=== PATIENT | female | born 1955 ===

== ENCOUNTER 2018-03-17 11:00 | Emergency (ER) | payer OTHER ==
[~2018-03-17] VITALS: Ht 162.6 cm; Wt 64.9 kg
[2018-03-17] MEDS ORDERED: LISINOPRIL40 MG (13:07)
[2018-03-17] MEDS ORDERED: GLUCOPHAGE XR750 MG (13:07)
[2018-03-17] MEDS ORDERED: CRESTOR5 MG (13:07)
[2018-03-17] MEDS ORDERED: KETO10TA2 PO (14:13)
[2018-03-17] MEDS ORDERED: ORPHENADRINE C100 MG PO (14:13)
[2018-03-17] MEDS ORDERED: CYCLOBENZAPRINE10 MG PO (14:13)
== END 2018-03-17 14:22 | disposition home or self-care (01) ==
LOC: ER 11:00
DX: S33.5XXA Sprain of ligaments of lumbar spine, initial encounter (principal); M54.5 Low back pain; X50.0XXA Overexertion from strenuous movement or load, initial encounter; Y93.F2 Activity, caregiving, lifting; Y92.813 Airplane as the place of occurrence of the external cause; Y99.8 Other external cause status

== ENCOUNTER 2018-08-18 21:24 | Emergency (ER) | payer BC ==
[~2018-08-18] VITALS: Ht 160 cm; Wt 65.8 kg
[~2018-08-18 21:24] MED LIST: CRESTOR5 MG; CYCLOBENZAPRINE10 MG PO; GLUCOPHAGE XR750 MG; KETO10TA2 PO; LISINOPRIL40 MG; ORPHENADRINE C100 MG PO
== END 2018-08-18 22:26 | disposition home or self-care (01) ==
LOC: ER 21:24
DX: S30.0XXA Contusion of lower back and pelvis, initial encounter (principal); W20.8XXA Other cause of strike by thrown, projected or falling object, initial encounter; Y93.89 Activity, other specified; Y92.89 Other specified places as the place of occurrence of the external cause; Y99.8 Other external cause status